=== PATIENT | female | born 1945 | race Caucasian/White ===

== ENCOUNTER 2016-05-19 05:05 | Inpatient (IN) | payer MEDICARE, SELFPAY ==
[2016-05-19 05:05] VITALS: BMI 21.2
[2016-05-19] MEDS ORDERED: NS 1,000 ML IV ONE ×3 (05:20→22:02)
[2016-05-19] MEDS ORDERED: PROMETHAZINE 25 MG/ML VIAL IV ONE ×2 (05:20→06:18)
--- NOTE | 2016-05-19 05:24 | EDPRACDOC ---
- General Information Chief Complaint: Nausea,Vomiting,Diarrhea Stated Complaint: WEAKNESS Time Seen by Provider: 05/19/16 05:13 Information Source: Patient Mode Of Arrival: Car Home Medications: Home Medications Amlodipine [Norvasc 10 mg Tablet] 10 mg PO DAILY 03/05/12 Aspirin [Chewable Aspirin] 81 mg PO DAILY 03/05/12 Atorvastatin [Lipitor 80 mg Tablet] 80 mg PO QHS 03/05/12 CloNIDine (Antihypertensive) [Catapres] 0.2 mg PO BID 03/05/12 Metoprolol Tartrate [Lopressor] 50 mg PO BID 03/05/12 Nitroglycerin 0.4 mg SL Q5MX3 PRN 03/05/12 Omeprazole [Prilosec] 40 mg PO DAILY 03/05/12 Sodium Bicarbonate 650 mg PO BID 03/05/12 Vitamin B Complex 1 cap PO DAILY 03/05/12 Acetaminophen [Tylenol] 650 mg PO Q4H PRN 05/19/16 Calcium Carbonate [Calcium] 600 mg PO BID 05/19/16 Ixazomib Citrate [Ninlaro] 4 mg PO DIR 05/19/16 Levothyroxine [Synthroid, Levoxyl] 50 mcg PO DAILY 05/19/16 Magnesium Oxide/Mag Aa Chelate [Magnesium 300 mg Capsule] 600 mg PO BID [place]-3 Fatty Acids/Fish Oil [Fish Oil 1,000 mg Capsule] 1 cap PO BID 05/19/16 Ondansetron [Zofran Odt] 4 mg PO Q6H PRN 05/19/16 Paricalcitol [Zemplar] 1 mcg PO DAILY 05/19/16 Allergies/Adverse Reactions: Allergies Allergy/AdvReac Type Severity Reaction Status Date / Time pain pills Allergy See Uncoded 05/19/16 09:06 Comments - History of Present Illness Onset: Saturday HPI: PATIENT HAS A HX OF MULTIPLE MYELOMA AND IS FOLLOWED BY DR. BUCK. SHE HAS DEVELOPED ANEMIA AND HYPERCALCEMIA. THIS HAS RECENTLY BECOME WORSE AND SO DR. BUCK STARTED HER ON IXAZOMIB. PATIENT STATES 1 ST DOSE LAST WEEK. - MADE HER SICK THEN. SECOND DOSE THIS WEEK. SHE NOTES NAUSEA AND VOMITING AND FATIGUE. Symptoms Occured: Reports: Spontaneous Duration: Reports: Since Onset Emesis: Reports: Food Particles Pain Severity: None Associated Signs & Symptoms: Reports: Nausea, Vomiting Oral Intake: Normal Urinary Output: Normal ED Past Medical History - History Reviewed Yes Nurses notes reviewed and agree except as marked Travel Outside of [place] in the Last 3 Months?: No - Patient Medical History Cardiac History: Reports: Hypertension, Heart Attack (2011). Denies: Cardiac Catheterization GI/ History: Reports: Renal Failure (CHRONIC KIDNEY DISEASE) Musculoskeletal History: Reports: Arthritis (FINGERS) Psychological History: Denies: Depression Systemic History: Reports: Cancer (multiple myeloma), Anemia, Hypothyroidism Surgical History: Denies: Angioplasty, Cardiac Catheterization Date of Last Chemotherapy Date: 03/05/12 - Family Medical History Denies: Hypertension, Diabetes, Cancer, Stroke, Cardiac Disorders - Social Medical History Smoking Status: Never smoker ETOH: None Substance Abuse: None Lives With: Family Lives In: Home EDM Review of Systems - Review of Systems ROS Negative Except as Marked: Yes All systems reviewed and were negative except as marked Constitutional: No Symptoms Reported. negative: Fever, Chills, Weakness, Fatigue, Loss of Appetite Eyes: No Symptoms Reported. negative: Redness, Blurred Vision, Double Vision, Discharge, Pain, Light Sensitive, Photophobia Ears: No Symptoms Reported. negative: Pain, Hearing Loss, Drainage, Ear Pulling Throat: No Symptoms Reported. negative: Pain, Swelling Nose: No Symptoms Reported. negative: Congestion, Bleeding, Discharge, Injection, Swelling, Deformity, Ecchymosis, Tender, Abrasion, Laceration Mouth: No Symptoms Reported. negative: Pain, Drooling Respiratory: No Symptoms Reported. negative: Cough, Brassy Cough, Barky Cough, Shortness of Breath, Wheezing, Hemoptysis Cardiovascular: No Symptoms Reported. negative: Chest Pain, Palpitations, Syncope, Edema, Orthopnea, PND, Skin Mottling, Cyanosis Gastrointestinal: Nausea, Vomiting. negative: Constipation, Diarrhea, Formula Intolerance, Melena, Pain Genitourinary: No Symptoms Reported. negative: Dysuria, Hematuria, Frequency, Discharge, Bleeding, Testicular Pain, Neurological: No Symptoms Reported. negative: Headache, Dizziness, Seizure, Numbness, Weakness, Speech Difficulty, Gait Difficulty Musculoskeletal: No Symptoms Reported. negative: Neck, Chestwall, Ribs, Back, Shoulder, Arm, Elbow, Forearm, Wrist, Hand, Pelvis, Hip, Femur, Knee, Leg, Ankle , Foot Integumentary: No Symptoms Reported. negative: Itching, Rash, Bruising, Wound Allergic/Immunologic: No Symptoms Reported. negative: Hives, Itching Hematologic: No Symptoms Reported. negative: Lymphadenopathy, Easy Bruising, Easy Bleeding Endocrine: No Symptoms Reported. negative: Weight Gain, Weight Loss Psychiatric: No Symptoms Reported. negative: Anxiety, Depression, Hallucinations, Insomnia, Suicidal - Physical Exam Constitutional: Alert (Awake), Cachectic Oriented to: Time, Person, Place Last recorded Vital Signs: Last Vital Signs Temp 97.7 F 05/19/16 05:15 Pulse 75 05/19/16 05:15 Resp 20 05/19/16 05:15 BP 124/59 L 05/19/16 05:15 Pulse Ox 99 05/19/16 05:15 Oxygen Pulse Oxygen Saturation 99 O2 Device Room Air Oxygen Flow Rate Fraction of Inspired Oxygen ( FIO2) - HEENT Head: Normal ( normocephalic) Eye Exam: Normal (PERRL, EOMI, Sclera white) Oropharynx: Normal (Pharynx:Moist without exudate,Gums-no swelling) Tympanic Membrane: Normal ENT EAC: Normal TMJ: Normal Nose: No Symptoms Reported (septum midline) Neck: Normal (FROM, trachea at midline) - Respiratory/Cardiovascular Respiratory: Normal - CTA (BBS clear to auscultation without adventitious sounds ) Cardiovascular: Normal (RRR without murmur, gallop or rub) - GI Auscultation: Normal (NABS) Palpation: Normal (Soft,No rebound or guarding, non distended) Tenderness: Non tender Richard's Sign: Negative - Musculoskeletal Back: Normal (Non-Tender) Extremities: Normal (Normal tone, Pulses 2+ No cyanosis or edema, FROM) - Integumentary Skin: Normal, Warm, Dry Lymphatics: Normal (no adenopathy) - Neurologic Memory Impaired: Normal Motor Function: Normal (Normal tone, Pulses 2+ No cyanosis or edema, FROM) Cranial Nerve: Normal (CN II-X11 intact sensation, strength 5/5) Cerebellar: Normal Mood Description: Normal Perception: Normal ED Procedures - Central Line Indication: Hypotension Line Procedure: Chlorahexadine Equipment used during procedure: Hat and Mask, Sterile Gown, Sterile Gloves Line Lumen: triple Central Line Postion: femoral (L) Anesthesia: local Line Position approached and secured by standard fashion: sutured, good blood return Complications: none - Intubation Indication: Respiratory Insufficiency, Altered Mental Status Intubation Date: 05/20/16 Time of Intubation: 06:10 Pre-oxygenation completed: Yes Number of Attempts: 1 Storcz Used: Yes Intubation Method: Oral Endotracheal Utilized: Mac3 Blade Tube Size (cm): 7.5 Position at Lip: 17 ETCO2 Detector Positive: Yes Breath Sounds after Intubation: equal Intubation Complications: no complications Post Intubation Procedure CXR ordered?: Yes - Re-evaluation Re-evaluation 1 Re-evaluation Time: 06:09 (CALLED TO BEDSIDE TODAY AFTER PATIENT COLLAPSED. REQUIRED EMERGENT INTUBATION AND CENTRAL LINE PLACEMENT DURING CPR) - Results 05/20/16 01:40 05/20/16 01:40 - EKG EKG #1 EKG Time: 06:16 -: Yes EKG interpreted by me Rate: bpm: 71 [place]: Normal Rhythm: NSR Block: None Hypertrophy: None ST: Normal ED Critical Care Note - Critical Care Note Total Time (mins): 90 - Departure Yes I personally saw and evaluated the patient. Disposition: Admit IP To This Hospital Condition: Fair Final Diagnosis: Nausea and vomiting, Acute on chronic renal failure, Hyponatremia Education/Counseling Given To: Patient Education/Counseling Given Regarding: Diagnosis, Treatment, Prognosis Decision to Admit Time: 06:06 Decision to admit date: 05/20/16 Decision to admit: from ED - Physician Consulted Hospitalist Time Called: 06:06 Provider Called: Adeel Lee Time Bottling Attendant Returned Call: 06:06
[2016-05-19 05:38] LABS: AUTOMATED BASOPHIL 0.4 % (0-2); AUTOMATED LYMPH 12.8 % (17-44); AUTOMATED MONOCYTE 5.9 % (3-10); AUTOMATED NEUTROPHIL 80.9 % (45-76); MPV 11.4 fL (7.4-10.4)
[2016-05-19 05:51] LABS: BLOOD UREA NITROGEN 42 MG/DL (7-17); CALCIUM 10.9 MG/DL (8.4-10.2); CALCULATED OSMOLALITY 261 MOs/Kg (270-290); CHLORIDE 93 mEq/L (98-107); GLUCOSE 119 mg/dL (70-99); SODIUM LEVEL 129 mEq/L (137-146); TOTAL PROTEIN 6.8 G/DL (6.3-8.2)
[2016-05-19] MEDS ORDERED: PANTOPRAZOLE 40 MG TAB PO SCH (06:00)
[2016-05-19] MEDS ORDERED: ALPRAZOLAM 0.5 MG TAB PO PRN (07:24)
[2016-05-19] MEDS ORDERED: Albuterol/Ipratropium Neb 3 ML NEB NEB PRN (07:27)
[2016-05-19] MEDS: ONDANSETRON HCL 4 MG/2 ML VIAL IV PRN ×3 (08:26→20:44)
[2016-05-19] MEDS ORDERED: ASPIRIN (CHEWABLE) 81 MG TAB PO SCH (09:00)
[2016-05-19] MEDS ORDERED: LEVOTHYROXINE 75 MCG (0.075 MG) TAB PO SCH (09:00)
[2016-05-19] MEDS ORDERED: PARICALCITOL 1 MCG CAP PO SCH (09:00)
[2016-05-19] MEDS ORDERED: AMLODIPINE 10 MG TAB PO SCH (09:00)
[2016-05-19] MEDS ORDERED: METOPROLOL TARTRATE 50 MG TAB PO SCH (09:00)
[2016-05-19] MEDS: SODIUM BICARBONATE 650 MG (10 GR) TAB PO SCH ×2 (09:28→22:14)
[2016-05-19] MEDS: NS 1,000 ML IV SCH ×2 (09:36→16:05)
[2016-05-19] MEDS: CALCIUM CARBONATE 500 MG TAB PO SCH ×2 (09:36→15:44)
[2016-05-19] MEDS: MAGNESIUM OXIDE 400 MG TAB PO SCH ×2 (09:36→15:43)
[2016-05-19] MEDS ORDERED: Vaccine Screening Complete SCH (10:00)
[2016-05-19] MEDS ORDERED: PROMETHAZINE 25 MG/ML VIAL IV PRN ×2 (10:41→18:50)
[2016-05-19] MEDS ORDERED: LORAZEPAM 2 MG/ML VIAL IV PRN ×2 (10:41→18:52)
--- NOTE | 2016-05-19 10:47 | HISTPHYS ---
- Chief Complaint Nausea vomiting - History of Present Illness This is a pleasant 70-year-old female who unfortunately is under treatment by Dr. Gruber for multiple myeloma, and is being admitted to the hospital due to intractable nausea and vomiting with associated dehydration and acute kidney injury. The patient tells me that she started on a new medication last week, which has resulted in severe nausea and vomiting. She takes the medication each Saturday, taking her last dose 4 days ago and the same symptoms including nausea, vomiting and lack of appetite have recurred just as they did when she took her dose last Saturday. She has a couple of friends with her this morning in the hospital who of spent the night with her, and says that she she was up all night nauseous and vomiting constantly. She has been having bowel movements which are quite normal, the last 1 was about 48 hours ago. She denies any chest pain, fevers, shortness of breath, chills, diarrhea or constipation. She has a little bit of abdominal pain, but she feels like this is due to her severe vomiting. No rashes on her skin or sick contacts. No antibiotics recently. - Medical History Cardiac History: Reports: Hypertension, Heart Attack (2010). Denies: Cardiac Catheterization GI/ History: Reports: Renal Failure (CHRONIC KIDNEY DISEASE) Musculoskeletal History: Reports: Arthritis (FINGERS) Systemic History: Reports: Cancer (multiple myeloma), Anemia, Hypothyroidism Psychological History: Denies: Depression - Surgical History Denies: Angioplasty, Cardiac Catheterization - Medictions/Allergies Allergies pain pills Allergy (Uncoded 05/19/16 09:06) See Comments makes me see things Home Medications Amlodipine [Norvasc 10 mg Tablet] 10 mg PO DAILY 03/05/12 Aspirin [Chewable Aspirin] 81 mg PO DAILY 03/05/12 Atorvastatin [Lipitor 80 mg Tablet] 80 mg PO QHS 03/05/12 CloNIDine (Antihypertensive) [Catapres] 0.2 mg PO BID 03/05/12 Metoprolol Tartrate [Lopressor] 50 mg PO BID 03/05/12 Nitroglycerin 0.4 mg SL Q5MX3 PRN 03/05/12 Omeprazole [Prilosec] 40 mg PO DAILY 03/05/12 Sodium Bicarbonate 650 mg PO BID 03/05/12 Vitamin B Complex 1 cap PO DAILY 03/05/12 Acetaminophen [Tylenol] 650 mg PO Q4H PRN 05/19/16 Calcium Carbonate [Calcium] 600 mg PO BID 05/19/16 Ixazomib Citrate [Ninlaro] 4 mg PO DIR 05/19/16 Levothyroxine [Synthroid, Levoxyl] 50 mcg PO DAILY 05/19/16 Magnesium Oxide/Mag Aa Chelate [Magnesium 300 mg Capsule] 600 mg PO BID [place]-3 Fatty Acids/Fish Oil [Fish Oil 1,000 mg Capsule] 1 cap PO BID 05/19/16 Ondansetron [Zofran Odt] 4 mg PO Q6H PRN 05/19/16 Paricalcitol [Zemplar] 1 mcg PO DAILY 05/19/16 - Family History Denies: Hypertension, Diabetes, Cancer, Stroke, Cardiac Disorders - Social History Smoking Status: Never smoker - Review of Systems Yes All systems reviewed and were negative except as marked (And as mentioned in the history of present illness above.) - Physical Exam Vital Signs: Initial Vitals Temperature 97.7 F 05/19/16 05:15 Pulse Rate 75 05/19/16 05:15 Respiratory Rate 20 05/19/16 05:15 Blood Pressure 124/59 L 05/19/16 05:15 Pulse Oxygen Saturation 99 05/19/16 05:15 Constitutional: Distress Oriented to: Time, Person, Place Exam: Tired appearing woman appearing her stated age resting in a hospital bed on the PCU. - HEENT Head: Normal (normocephalic,atraumatic, trachea midline) Eye: Normal (EOMI, Sclera white) Oropharynx: Normal (moist), Membranes Dry Nose: No Symptoms Reported (without discharge or bleeding) Respiratory: Normal - CTA (Clear to auscultation bilaterally, no wheezing,rales or rhonchi. No use of accessory muscles) Cardiovascular: Normal (RRR, no murmurs, rubs or gallops) - GI Palpation: Normal (soft, non distended and nontender) - Musculoskeletal Extremities: Normal (normal tone, no cyanosis or edema) - Integumentary Skin: Normal (no rashes or lesions) - Neurologic Cranial Nerve: Normal (CN II-XII intact) Mood Description: Normal (Fully oriented and appropiate affect) - Focused CV Perfusion Exam Vital Signs: Last Vital Signs Temp 98.1 F 05/19/16 09:18 Pulse 89 05/19/16 10:40 Resp 18 05/19/16 09:18 BP 131/71 05/19/16 09:18 Pulse Ox 97 05/19/16 09:18 - Lab Results Laboratory Tests 05/19/16 05/19/16 05:27 05:27 WBC 10.0 Hgb 12.8 Hct 38.0 Plt Count 100 L Sodium 129 L Potassium 4.0 Carbon Dioxide 20 L BUN 42 H Creatinine 3.60 H Calcium 10.9 H AST 41 H ALT 31 Alkaline Phosphatase 110 - Assessment (1) Hypercalcemia E83.52 - HYPERCALCEMIA Acute Hypercalcemia of malignancy, related to her multiple myeloma. Calcium levels are actually relatively stable, and better than they have been in the intervening months. (2) Multiple myeloma C90.00 - MULTIPLE MYELOMA NOT HAVING ACHIEVED REMISSION Acute Currently under the care of Dr. Gruber, her presentation is most likely related to medication effect from her current chemotherapy. (3) Acute on chronic renal failure N17.9 - ACUTE KIDNEY FAILURE, UNSPECIFIED; N18.9 - CHRONIC KIDNEY DISEASE, UNSPECIFIED Acute Baseline creatinine about 2.9. Will hydrate gently, recheck renal function in the morning. (4) Hyponatremia E87.1 - HYPO-OSMOLALITY AND HYPONATREMIA Acute Mild, hypovolemic. rehydrating with normal saline will follow daily. (5) Nausea and vomiting R11.2 - NAUSEA WITH VOMITING, UNSPECIFIED Acute Due to medication effect. Will treat with alternating IV Zofran and IV Phenergan, as well as small doses of IV Ativan.
[2016-05-19] MEDS ORDERED: PANTOPRAZOLE 40 MG VIAL IV SCH (11:00)
[2016-05-19] MEDS ORDERED: VIT B-C COMPLEX (NEPHROVITE) TAB PO SCH (12:00)
[2016-05-19] MEDS ORDERED: RTU IV ONE (12:04)
[2016-05-19] MEDS ORDERED: SODIUM BICARBONATE 50 MEQ/50 ML (8.4%) PFS IV ONE (12:04)
[2016-05-19] MEDS ORDERED: D5W 100 ML IV ONE (12:04)
[2016-05-19] MEDS ORDERED: EPINEPHrine 1 MG/10 ML (1:10,000) SYR IV ONE ×2 (12:04)
[2016-05-19] MEDS ORDERED: DOPAMINE IV ONE (12:04)
[2016-05-19] MEDS ORDERED: ENOXAPARIN 60 MG/0.6 ML PFS SQ SCH (18:00)
[2016-05-19] MEDS ORDERED: ENOXAPARIN 40 MG/0.4 ML PFS SQ SCH (18:00)
[2016-05-19] MEDS ORDERED: Enoxaparin Treatment Dose per Pharmacy SQ SCH (18:00)
[2016-05-19] MEDS ORDERED: ASPIRIN 300 MG SUPP PR ONE (18:00)
[2016-05-19] MEDS: MORPHINE 2 MG/ML INJECTION IV PRN ×2 (19:11→22:14)
[2016-05-19] MEDS ORDERED: ATORVASTATIN 80 MG TAB PO SCH (21:00)
[2016-05-19 22:44] LABS: PARTIAL THROMB. TIME 26.8 SEC (22-35); PT-INR 1.1
[2016-05-20] MEDS ORDERED: PANTOPRAZOLE 40 MG VIAL IV SCH
[2016-05-20 01:56] LABS: MPV 11.4 fL (7.4-10.4)
[2016-05-20 02:19] LABS: BLOOD UREA NITROGEN 38 MG/DL (7-17); CALC CORRECTED 9.9 MG/DL (8.4-10.2); CALCIUM 8.7 MG/DL (8.4-10.2); CALCULATED OSMOLALITY 266 MOs/Kg (270-290); CHLORIDE 106 mEq/L (98-107); GLUCOSE 142 mg/dL (70-99); SODIUM LEVEL 132 mEq/L (137-146); TOTAL PROTEIN 5.4 G/DL (6.3-8.2)
[2016-05-20] MEDS: ONDANSETRON HCL 4 MG/2 ML VIAL IV PRN (03:21)
[2016-05-20] MEDS ORDERED: NS 1,000 ML IV ONE ×3 (03:30→05:34)
--- NOTE | 2016-05-20 03:35 | GENMEDPROG ---
Chief Complaint: CRITICAL CARE NOTE 05/20/16329 S: NURSE CALLED. PATIENT HAS INCREASING TROPONIN LEVEL. HAS HYPOTENSION AGAIN ( HYPOTENSIVE EARLIER THIS EVENING). CLAMMY. DOES NOT LOOK WELL. Subjective Note: CRITICAL CARE NOTE 05/20/16329 S: NURSE CALLED. PATIENT HAS INCREASING TROPONIN LEVEL. HAS HYPOTENSION AGAIN ( HYPOTENSIVE EARLIER THIS EVENING). CLAMMY. DOES NOT LOOK WELL. Patient reports she feels weak. No chest pain or shortness of breath. Does have continued vomiting. Nausea. Mild abdominal pain epigastric 5/10 dull ache, worse with vomiting. No diarrhea, constipation, or bloody stool. Patient states she feels hot. Has had left back/flank pain, unchanged. ROS: GENERAL: No Fever, or diaphoresis. Positive for fatigue/malaise. States she feels hot. HEENT: No ear pain or discharge. No nasal discharge or bleeding. No throat pain or swelling. No eye pain or eye redness. RESPIRATORY: No cough, wheezing, or shortness of breath. CARDIOVASCULAR: No chest pain. Occasional palpitations. GI: Abdominal pain, nausea, vomiting. No diarrhea, constipation, or bloody stool. Has had left back/flank pain, unchanged. NEUROLOGICAL: No headache or focal weakness. INTEGUMENT: no rashes, itching, or lesions. LYMPHATIC SYSTEM: no lymph node swelling or pain. MUSCULOSKELETAL: no new pain or joint swelling. GENITOURINARY: No dysuria or hematuria. ENDOCRINE: No polyuria or polydipsia. HEME: No acute bleeding, or easy bruising. Notes Reviewed: Yes: Events from last night noted and discussed with Clinical Staff Current Medication List: Reviewed - Physical Examination Vital Signs and I&O: Last Vital Signs Temp 97.5 F 05/19/16 23:56 Pulse 106 05/20/16 03:27 Resp 16 05/19/16 23:56 BP 84/48 L 05/20/16 03:27 Pulse Ox 93 05/19/16 23:56 Oxygen Pulse Oxygen Saturation 93 O2 Device Nasal Cannula Oxygen Flow Rate 3.5 Fraction of Inspired Oxygen ( FIO2) Intake & Output 05/17/16 05/18/16 05/19/16 05/20/16 05:59 05:59 05:59 05:59 Intake Total 2963 Output Total 500 Balance 2463 Respiratory: Normal - CTA (Clear to auscultation bilaterally, no wheezing,rales or rhonchi. No use of accessory muscles) GENERAL: Ill-appearing, well nourished, in acute distress. HEENT: Normocephalic, atraumatic; pupils equal and round. Nares patent, without discharge or bleeding. No oropharyngeal lesions or erythema. Mucous membranes are dry. NECK: is supple, no masses, trachea midline. RESPIRATORY: Clear to auscultation bilaterally. Chest wall movements are symmetric. No use of accessory muscles to breathe. No wheezing, rales, rhonchi. CARDIOVASCULAR: Normal S1, S2. Murmur 2/6 systolic. No rubs, or gallops. PMI non -displaced. Carotids: no carotid bruits. Mild tachycardia. DP pulses 2+ bilaterally. GI: soft, non-distended, normal active bowel sounds. No hepatosplenomegaly. Mild epigastric tenderness. INTEGUMENT: PALE. Clean, mildly diaphoretic, and intact. No rashes. No lesions. MUSCULOSKELETAL: Moving all extremities. No cyanosis. No clubbing. Edema: none bilaterally. NEUROLOGICAL: Cranial nerves 2-12 grossly intact. Motor 4-/5 throughout. Reflexes: 2+ bilaterally. Babinski: toes downgoing bilaterally. Intact Finger to nose. Sensory grossly intact to light touch. Intact rapid alternating movements bilaterally. No pronator drift. PSYCHIATRIC: Fully oriented. Normal and appropriate affect. LYMPHATIC: No cervical lymphadenopathy. No supraclavicular lymphadenopathy. Lab/DI/Studies Reviewed: Laboratory Tests 05/19/16 05/19/16 05/19/16 05:27 05:27 09:50 WBC 10.0 RBC 4.17 L Hgb 12.8 Hct 38.0 MCV 91 MCH 30.6 MCHC 33.5 RDW 14.6 H Plt Count 100 L MPV 11.4 H Neut % (Auto) 80.9 H Lymph % (Auto) 12.8 L Moody % (Auto) 5.9 Eos % (Auto) 0.0 Baso % (Auto) 0.4 Absolute Neuts (auto) 8.00 Absolute Lymphs (auto) 1.20 PT 11.3 H INR 1.1 APTT 26.8 Fibrinogen 392 Sodium 129 L Potassium 4.0 Chloride 93 L Carbon Dioxide 20 L Anion Gap 20 H BUN 42 H Creatinine 3.60 H Estimated GFR (MDRD) 13 L Glucose 119 H Calculated Osmolality 261 L Calcium 10.9 H Corrected Calcium Magnesium Total Bilirubin 0.5 AST 41 H ALT 31 Alkaline Phosphatase 110 Troponin I Total Protein 6.8 Albumin 4.0 05/19/16 05/19/16 05/19/16 09:50 17:00 20:15 WBC RBC Hgb Hct MCV MCH MCHC RDW Plt Count 86 L MPV Neut % (Auto) Lymph % (Auto) Moody % (Auto) Eos % (Auto) Baso % (Auto) Absolute Neuts (auto) Absolute Lymphs (auto) PT INR APTT Fibrinogen Sodium Potassium Chloride Carbon Dioxide Anion Gap BUN Creatinine Estimated GFR (MDRD) Glucose Calculated Osmolality Calcium Corrected Calcium Magnesium Total Bilirubin AST ALT Alkaline Phosphatase Troponin I 0.67 H* 1.99 H* D Total Protein Albumin 05/20/16 05/20/16 05/20/16 01:40 01:40 01:40 WBC 12.2 H RBC 3.55 L Hgb 11.0 L D Hct 33.4 L MCV 94 MCH 30.8 MCHC 32.8 L RDW 14.5 Plt Count 77 L MPV 11.4 H Neut % (Auto) Lymph % (Auto) Moody % (Auto) Eos % (Auto) Baso % (Auto) Absolute Neuts (auto) Absolute Lymphs (auto) PT INR APTT Fibrinogen Sodium 132 L Potassium 4.0 Chloride 106 Carbon Dioxide 7 L Anion Gap 23 H BUN 38 H Creatinine 3.30 H Estimated GFR (MDRD) 14 L Glucose 142 H Calculated Osmolality 266 L Calcium 8.7 Corrected Calcium 9.9 Magnesium Total Bilirubin 0.5 AST 119 H ALT 58 H Alkaline Phosphatase 81 Troponin I 6.13 H* D Total Protein 5.4 L Albumin 2.8 L 05/20/16 01:40 WBC RBC Hgb Hct MCV MCH MCHC RDW Plt Count MPV Neut % (Auto) Lymph % (Auto) Moody % (Auto) Eos % (Auto) Baso % (Auto) Absolute Neuts (auto) Absolute Lymphs (auto) PT INR APTT Fibrinogen Sodium Potassium Chloride Carbon Dioxide Anion Gap BUN Creatinine Estimated GFR (MDRD) Glucose Calculated Osmolality Calcium Corrected Calcium Magnesium 1.40 L Total Bilirubin AST ALT Alkaline Phosphatase Troponin I Total Protein Albumin EKG #1: 71 bpm. Normal sinus rhythm. Low voltage QRS. Nonspecific T wave abnormality. Flat T wave in 3, aVF, and V6. Minimal ST depression in 2. Reviewed EKG personally. EKG #2: 105 bpm. Sinus tachycardia. Low voltage QRS. Cannot rule out anterior infarct, age undetermined. Flat T wave in leads 3, aVF, and V6. ST depression in V2, V4. Reviewed EKG personally. - Assessment (1) Hypotension Acute I95.9 - HYPOTENSION, UNSPECIFIED Comment/Plan: SBP in high 80s. Required several IVF boluses overnight. Plan: Transfer to ICU. Continue IVF boluses. If no improvement add pressors. (2) Acute coronary syndrome Acute I24.9 - ACUTE ISCHEMIC HEART DISEASE, UNSPECIFIED Comment/Plan: Possible diagnosis, vs increase due to renal failure and acute illness. No chest pain. Troponin continues to increase. Plan: Lovenox q 12 hours. Cannot receive beta yvette or CHANNING at this time due to renal failure and hypotension. Telemetry. (3) Acute on chronic renal failure Acute N17.9 - ACUTE KIDNEY FAILURE, UNSPECIFIED; N18.9 - CHRONIC KIDNEY DISEASE, UNSPECIFIED Comment/Plan: HISTORY: Baseline creatinine 2.9. Will hydrate gently, recheck renal function in the morning. UPDATE: Cr 3.6 decreased slightly to 3.3. Continue rehydration. Continue home medications. Avoid nephrotoxins. (4) Magnesium deficiency Acute E61.2 - MAGNESIUM DEFICIENCY Comment/Plan: Noted. Plan: Replace with IV magnesium Caution due to renal failure. (5) Nausea and vomiting Acute R11.2 - NAUSEA WITH VOMITING, UNSPECIFIED Comment/Plan: Due to medication effect. Will treat with alternating IV Zofran and IV Phenergan, as well as small doses of IV Ativan. UPDATE: Severe. Has had several episodes of vomiting overnight. Increased Phenergan dose. Continue with zofran, ativan. (6) Multiple myeloma Acute C90.00 - MULTIPLE MYELOMA NOT HAVING ACHIEVED REMISSION Comment/Plan: Currently under the care of Dr. Gruber, her presentation is most likely related to medication effect from her current chemotherapy. - Plan GI Prophylaxis with Pantoprazole 40 mg q 12 hours. Ordered labs. In summary, this patient is acutely and critically ill. The patient requires treatment of vital organ failure and measures to prevent further life- threatening deterioration of condition. I have spent 60 min in the critical care of this patient. Case Care Discussed with: Patient, Nursing Staff Total Time: 60 min. Critical Care: Yes Code: 291
[2016-05-20 03:57] VITALS: TEMP 96.3
[2016-05-20] MEDS ORDERED: Magnesium Sulfate 2 gm/D5W 2 GM/50 ML RTU IV ONE (04:00)
[2016-05-20] MEDS ORDERED: NS 500 ML IV ONE (04:25)
[2016-05-20] MEDS ORDERED: MIDAZOLAM 5 MG/5 ML VIAL ONE (05:13)
[2016-05-20] MEDS ORDERED: SUCCINYLCHOLINE 20 MG/ML INJ 10 ML VIAL IV ONE (05:14)
[2016-05-20] MEDS ORDERED: ETOMIDATE 20 MG/10 ML VIAL IV ONE (05:15)
[2016-05-20] MEDS ORDERED: LIDOCAINE 100 MG PFS IV ONE (05:15)
[2016-05-20] MEDS ORDERED: ATROPINE 1 MG/10 ML PFS IV ONE (05:15)
[2016-05-20] MEDS ORDERED: Norepinephrine in D5W infusion 8,000 MCG/250 ML BAG IV ONE (05:35)
[2016-05-20] MEDS ORDERED: Norepinephrine in D5W infusion 8,000 MCG/250 ML BAG IV SCH (05:35)
[2016-05-20] MEDS ORDERED: DOPAMINE IV SCH (05:42)
[2016-05-20] MEDS ORDERED: RTU IV SCH (05:42)
[2016-05-20] MEDS ORDERED: CHAPSTICK LIP BALM TOP PRN (05:46)
[2016-05-20] MEDS ORDERED: LORAZEPAM 2 MG/ML VIAL IV PRN (05:46)
[2016-05-20] MEDS ORDERED: CHLORHEXIDINE 0.12% ORAL SOLN 15 ML PO SCH (06:00)
[2016-05-20] MEDS ORDERED: FENTANYL 2,500 MCG/250 ML BAG IV SCH (06:00)
--- NOTE | 2016-05-20 06:18 | DIRPT ---
CLINICAL DATA: Intubation. Check tube placement. Suspected STEMI. EXAM: PORTABLE CHEST 1 VIEW COMPARISON: 01/25/2016 FINDINGS: Endotracheal tube with tip just below the cords and cuff likely supraglottic. The orogastric tube tip is in the stomach. Stable heart size and aortic contours when allowing for rotation. There is streaky perihilar opacity suggesting atelectasis and possible aspiration. There is interlobular septal thickening bilaterally with [place] lines. No visible effusion or air leak. These results were called by telephone at the time of interpretation on 05/20/2016 at 6:[address] EMILIA PAYTON MD, who verbally acknowledged these results. IMPRESSION: 1. Malpositioned endotracheal tube with cuff above the glottis. 2. Orogastric tube in good position. 3. Extensive lung opacity, favor combination of perihilar atelectasis/ aspiration and pulmonary edema. Electronically Signed By: Liborio Taveras M.D. On: 05/20/2016 06:15
[2016-05-20 06:39] VITALS: BP 147/64; PULSE 90
[2016-05-20] MEDS ORDERED: MORPHINE 2 MG/ML INJECTION ONE (06:51)
[2016-05-20 06:54] LABS: MPV 11.6 fL (7.4-10.4)
[2016-05-20 07:07] LABS: CALC CORRECTED 9.4 MG/DL (8.4-10.2); CALCIUM 6.7 MG/DL (8.4-10.2); CREATININE 2.9 MG/DL (0.52-1.04); TOTAL PROTEIN 2.6 G/DL (6.3-8.2)
[2016-05-20 07:21] LABS: PT-INR 1.6
[2016-05-20 07:35] LABS: SEG NEUTROPHIL 70 % (45-76)
--- NOTE | 2016-05-20 13:29 | CAPUEKG ---
[place], [place] Test Date: 2016-05-19 Pat Name: YANCY GARCIA Department: Room: 446 Gender: Female Personnel Recruiter: AMIRA YING: Requested By: Order Number: Reading MD: Anthony Kelley Measurements Intervals [place] Rate: 105 P: 49 HI: 158 QRS: -33 QRSD: 90 T: 62 QT: 374 QTc: 494 Interpretive Statements Sinus tachycardia Left axis deviation Low voltage QRS Non-specific ST-T changes anteriorly Since earlier tracing, rate has increased and S-T changes more prominent. Abnormal ECG Electronically Signed On 05-20-16 13:29:02 EST by Anthony Kelley <[email or web address] [id number]
--- NOTE | 2016-05-20 19:18 | GENMEDPROG ---
Chief Complaint: CRITICAL CARE AND CODE BLUE NOTE 05/20/16449 S: NURSE NOTED PATIENT'S OXYGEN LEVELS WORSENING. PATIENT STILL HYPOTENSIVE. UPDATE: PATIENT'S HEART RATE WAS MILDLY TACHYCARDIC, THEN WAS BRADYCARDIC. UPDATE: PATIENT'S HEART RATE DECREASED, BECAME APNEIC, CODE BLUE CALLED. Subjective Note: CRITICAL CARE AND CODE BLUE NOTE 05/20/16449 S: NURSE NOTED PATIENT'S OXYGEN LEVELS WORSENING. PATIENT STILL HYPOTENSIVE. UPDATE: PATIENT'S HEART RATE WAS MILDLY TACHYCARDIC, THEN WAS BRADYCARDIC. UPDATE: PATIENT'S HEART RATE DECREASED BRIEFLY, BECAME APNEIC, CODE BLUE CALLED , HEART RATE INCREASED. Notes Reviewed: Yes: Events from last night noted and discussed with Clinical Staff Current Medication List: Reviewed DVT Prophylaxis: Yes - Physical Examination Vital Signs and I&O: Last Vital Signs Temp 96.3 F L 05/20/16 03:27 Pulse 90 05/20/16 06:36 Resp 19 05/20/16 06:36 BP 147/64 05/20/16 06:36 Pulse Ox 92 05/20/16 06:36 Oxygen Pulse Oxygen Saturation 92 O2 Device Nasal Cannula Oxygen Flow Rate 5 Fraction of Inspired Oxygen ( 100 FIO2) Intake & Output 05/18/16 05/19/16 05/20/16 05/21/16 05:59 05:59 05:59 05:59 Intake Total 2963 Output Total 500 Balance 2463 Patient's weight 52.617 kg Vital Signs - 24 hr 05/19/16 05/19/16 05/19/16 20:00 21:59 22:05 Temperature 98.2 F Pulse Rate 103 114 112 Respiratory 20 Rate Blood Pressure 96/62 L 88/56 L Pulse Oxygen 92 Saturation 05/19/16 05/19/16 05/19/16 22:14 22:27 23:04 Temperature Pulse Rate 110 109 110 Respiratory Rate Blood Pressure 92/61 L 90/62 L 91/60 L Pulse Oxygen Saturation 05/19/16 05/20/16 05/20/16 23:56 00:00 02:07 Temperature 97.5 F Pulse Rate 108 111 109 Respiratory 16 Rate Blood Pressure 92/58 L Pulse Oxygen 93 Saturation 05/20/16 05/20/16 05/20/16 03:20 03:27 04:00 Temperature 96.3 F L Pulse Rate 112 106 106 Respiratory 16 Rate Blood Pressure 84/48 L 96/63 L Pulse Oxygen 92 90 L Saturation 05/20/16 05/20/16 04:30 06:36 Temperature Pulse Rate 106 90 Respiratory 19 Rate Blood Pressure 86/59 L 147/64 Pulse Oxygen 88 L 92 Saturation See code blue chart for further detail. Initial exam: GENERAL: Critically ill-appearing, well nourished, in acute distress. HEENT: Normocephalic, atraumatic; pupils equal and round. Nares patent, without discharge or bleeding. No oropharyngeal lesions or erythema. Mucous membranes are dry. NECK: is supple, no masses, trachea midline. RESPIRATORY: Clear to auscultation bilaterally. Chest wall movements are symmetric. No use of accessory muscles to breathe. Tachypnea. Decreased breath sounds in bases. No wheezing, rales, rhonchi. CARDIOVASCULAR: Normal S1, S2. No rubs, or gallops. PMI non-displaced. Carotids : no carotid bruits. Mild tachycardia. DP pulses 2+ bilaterally. GI: soft, non-distended, normal active bowel sounds. No hepatosplenomegaly. Mild epigastric tenderness. INTEGUMENT: Pale. Clean, dry, and intact. No rashes. No lesions. MUSCULOSKELETAL: No cyanosis. No clubbing. Edema: none bilaterally. NEUROLOGICAL: Cranial nerves 2-12 grossly intact, as best could be determined in this patient who is somnolent. No focal deficits appreciated. PSYCHIATRIC: Oriented. Somnolent. LYMPHATIC: No cervical lymphadenopathy. No supraclavicular lymphadenopathy. Follow up exam, code blue: GENERAL: Critically ill-appearing, well nourished, in acute distress. HEENT: Normocephalic, atraumatic; pupils equal and round. Nares patent, without discharge or bleeding. Mucous membranes are dry. After intubation and CPR, had blood in mouth and some in ET tube. NECK: is supple, no masses, trachea midline. RESPIRATORY: Clear to auscultation bilaterally. Decreased breath sounds. After intubation, breath sounds equal bilaterally. Patient without respirations, then had some spontaneous agonal breaths, then became apneic again. CARDIOVASCULAR: Periods of tachycardia and bradycardia. Patient lost pulses. Had PEA (pulseless electrical activity). GI: soft, non-distended. No hepatosplenomegaly. NG tube that was placed after first code blue episode drained dark red blood. INTEGUMENT: Pale. Clean, dry, and intact. No rashes. No lesions. MUSCULOSKELETAL: Developed cyanosis. No clubbing. Edema: none bilaterally. NEUROLOGICAL: Cranial nerves: unable to assess. No focal deficits appreciated. Patient had a few episodes of moving legs, jaw, head in between code blue efforts. PSYCHIATRIC: Not oriented. Obtunded. LYMPHATIC: No cervical lymphadenopathy. No supraclavicular lymphadenopathy. Lab/DI/Studies Reviewed: Laboratory Tests 05/19/16 05/19/16 05/19/16 05:27 05:27 09:50 WBC 10.0 RBC 4.17 L Hgb 12.8 Hct 38.0 MCV 91 MCH 30.6 MCHC 33.5 RDW 14.6 H Plt Count 100 L MPV 11.4 H Neut % (Auto) 80.9 H Lymph % (Auto) 12.8 L [place] % (Auto) 5.9 Eos % (Auto) 0.0 Baso % (Auto) 0.4 Absolute Neuts (auto) 8.00 Absolute Lymphs (auto) 1.20 Seg Neuts % (Manual) Band Neutrophils % Lymphocytes % (Manual) Absolute Neutrophils Absolute Lymphocytes Nucl RBC Rel Cnt (Man) Toxic Granulation Platelet Estimate RBC Morphology PT 11.3 H INR 1.1 APTT 26.8 Fibrinogen 392 Sodium 129 L Potassium 4.0 Chloride 93 L Carbon Dioxide 20 L Anion Gap 20 H BUN 42 H Creatinine 3.60 H Estimated GFR (MDRD) 13 L Glucose 119 H Calculated Osmolality 261 L Lactic Acid Calcium 10.9 H Corrected Calcium Magnesium Total Bilirubin 0.5 AST 41 H ALT 31 Alkaline Phosphatase 110 Troponin I Total Protein 6.8 Albumin 4.0 Cortisol 05/19/16 05/19/16 05/19/16 09:50 17:00 20:15 WBC RBC Hgb Hct MCV MCH MCHC RDW Plt Count 86 L MPV Neut % (Auto) Lymph % (Auto) [place] % (Auto) Eos % (Auto) Baso % (Auto) Absolute Neuts (auto) Absolute Lymphs (auto) Seg Neuts % (Manual) Band Neutrophils % Lymphocytes % (Manual) Absolute Neutrophils Absolute Lymphocytes Nucl RBC Rel Cnt (Man) Toxic Granulation Platelet Estimate RBC Morphology PT INR APTT Fibrinogen Sodium Potassium Chloride Carbon Dioxide Anion Gap BUN Creatinine Estimated GFR (MDRD) Glucose Calculated Osmolality Lactic Acid Calcium Corrected Calcium Magnesium Total Bilirubin AST ALT Alkaline Phosphatase Troponin I 0.67 H* 1.99 H* D Total Protein Albumin Cortisol 05/20/16 05/20/16 05/20/16 01:40 01:40 01:40 WBC 12.2 H RBC 3.55 L Hgb 11.0 L D Hct 33.4 L MCV 94 MCH 30.8 MCHC 32.8 L RDW 14.5 Plt Count 77 L MPV 11.4 H Neut % (Auto) Lymph % (Auto) [place] % (Auto) Eos % (Auto) Baso % (Auto) Absolute Neuts (auto) Absolute Lymphs (auto) Seg Neuts % (Manual) Band Neutrophils % Lymphocytes % (Manual) Absolute Neutrophils Absolute Lymphocytes Nucl RBC Rel Cnt (Man) Toxic Granulation Platelet Estimate RBC Morphology PT INR APTT Fibrinogen Sodium 132 L Potassium 4.0 Chloride 106 Carbon Dioxide 7 L Anion Gap 23 H BUN 38 H Creatinine 3.30 H Estimated GFR (MDRD) 14 L Glucose 142 H Calculated Osmolality 266 L Lactic Acid Calcium 8.7 Corrected Calcium 9.9 Magnesium Total Bilirubin 0.5 AST 119 H ALT 58 H Alkaline Phosphatase 81 Troponin I 6.13 H* D Total Protein 5.4 L Albumin 2.8 L Cortisol 05/20/16 05/20/16 05/20/16 01:40 01:40 06:34 WBC RBC Hgb Hct MCV MCH MCHC RDW Plt Count MPV Neut % (Auto) Lymph % (Auto) [place] % (Auto) Eos % (Auto) Baso % (Auto) Absolute Neuts (auto) Absolute Lymphs (auto) Seg Neuts % (Manual) Band Neutrophils % Lymphocytes % (Manual) Absolute Neutrophils Absolute Lymphocytes Nucl RBC Rel Cnt (Man) Toxic Granulation Platelet Estimate RBC Morphology PT INR APTT Fibrinogen Sodium Potassium Chloride Carbon Dioxide Anion Gap BUN Creatinine Estimated GFR (MDRD) Glucose Calculated Osmolality Lactic Acid Calcium Corrected Calcium Magnesium 1.40 L Total Bilirubin AST ALT Alkaline Phosphatase Troponin I 9.92 H* D Total Protein Albumin Cortisol 60.00 H 05/20/16 05/20/16 05/20/16 06:34 06:34 06:34 WBC 7.5 RBC 2.45 L Hgb 7.6 L D Hct 24.2 L MCV 98 MCH 30.9 MCHC 31.4 L RDW 15.0 H Plt Count 30 L MPV 11.6 H Neut % (Auto) Cancelled Lymph % (Auto) Cancelled [place] % (Auto) Cancelled Eos % (Auto) Cancelled Baso % (Auto) Cancelled Absolute Neuts (auto) Cancelled Absolute Lymphs (auto) Cancelled Seg Neuts % (Manual) 70 Band Neutrophils % 3 Lymphocytes % (Manual) 27 Absolute Neutrophils 5.48 Absolute Lymphocytes 2.03 Nucl RBC Rel Cnt (Man) 15 Toxic Granulation 1+ Platelet Estimate Dec RBC Morphology 2+ behzad PT 16.7 H INR 1.6 APTT 72.0 H Fibrinogen Sodium 136 L Potassium 4.2 Chloride 111 H Carbon Dioxide 11 L Anion Gap 18 H BUN 35 H Creatinine 2.90 H Estimated GFR (MDRD) 16 L Glucose 161 H Calculated Osmolality 273 Lactic Acid Calcium 6.7 L* Corrected Calcium 9.4 Magnesium 1.60 Total Bilirubin 0.4 AST 1493 H ALT 1429 H Alkaline Phosphatase 36 L Troponin I Total Protein 2.6 L Albumin 1.3 L Cortisol 05/20/16 06:34 WBC RBC Hgb Hct MCV MCH MCHC RDW Plt Count MPV Neut % (Auto) Lymph % (Auto) [place] % (Auto) Eos % (Auto) Baso % (Auto) Absolute Neuts (auto) Absolute Lymphs (auto) Seg Neuts % (Manual) Band Neutrophils % Lymphocytes % (Manual) Absolute Neutrophils Absolute Lymphocytes Nucl RBC Rel Cnt (Man) Toxic Granulation Platelet Estimate RBC Morphology PT INR APTT Fibrinogen Sodium Potassium Chloride Carbon Dioxide Anion Gap BUN Creatinine Estimated GFR (MDRD) Glucose Calculated Osmolality Lactic Acid 11.0 H* Calcium Corrected Calcium Magnesium Total Bilirubin AST ALT Alkaline Phosphatase Troponin I Total Protein Albumin Cortisol Previous EKGs: EKG #1: 71 bpm. Normal sinus rhythm. Low voltage QRS. Nonspecific T wave abnormality. Flat T wave in 3, aVF, and V6. Minimal ST depression in 2. Reviewed EKG personally. EKG #2: 105 bpm. Sinus tachycardia. Low voltage QRS. Cannot rule out anterior infarct, age undetermined. Flat T wave in leads 3, aVF, and V6. ST depression in V2, V4. Reviewed EKG personally. Chest x-ray, post intubation, viewed personally: EXAM: PORTABLE CHEST 1 VIEW COMPARISON: 01/25/2016 FINDINGS: Endotracheal tube with tip just below the cords and cuff likely supraglottic. The orogastric tube tip is in the stomach. Stable heart size and aortic contours when allowing for rotation. There is streaky perihilar opacity suggesting atelectasis and possible aspiration. There is interlobular septal thickening bilaterally with Wayne lines. No visible effusion or air leak. These results were called by telephone at the time of interpretation on 05/20/2016 at 6:[address] EMILIA PAYTON MD, who verbally acknowledged these results. IMPRESSION: 1. Malpositioned endotracheal tube with cuff above the glottis. 2. Orogastric tube in good position. 3. Extensive lung opacity, favor combination of perihilar atelectasis/ aspiration and pulmonary edema. Discussed findings with radiologist. Note: Called Dr. Plaza; he re-intubated the patient. - Assessment (1) Pulseless electrical activity Acute I46.9 - CARDIAC ARREST, CAUSE UNSPECIFIED Comment/Plan: Patient had mild tachycardia, developed worsening hypoxia, then after brief bradycardia had pulseless electrical activity and a code blue was called at 0510 on 05/20/16. Nurses immediately started code blue protocols, CPR. Dr. Payton was still in the ICU writing orders for the patient and was at bedside. Respiratory therapists began [id number]. Prior to start of code, IVF NS bolus had been running at 999; IVF boluses continued throughtout the code. Chest compressions continued. Epi given x 3. Bicarb x 1. Magnesium IV that was infusing prior to code was increased in rate. Dr. Plaza from the emergency department intubated patient. Color change was noted on instrumentation and patient was noted to have breath sounds that were equal bilaterally. Respiratory therapist continued [id number]. Rhythm changed to a fib, pulse was palpated at rate of 108-127, and blood pressures were 127/90, 112/54, then 86/62. (2) Acute respiratory failure with hypoxia Acute J96.01 - ACUTE RESPIRATORY FAILURE WITH HYPOXIA (3) Anemia associated with acute blood loss Acute D62 - ACUTE POSTHEMORRHAGIC ANEMIA (4) Upper GI bleeding Acute K92.2 - GASTROINTESTINAL HEMORRHAGE, UNSPECIFIED (5) Hypotension Acute I95.9 - HYPOTENSION, UNSPECIFIED Comment/Plan: SBP in high 80s. Required several IVF boluses overnight. Plan: Transfer to ICU. Continue IVF boluses. If no improvement add pressors. (6) Acute coronary syndrome Acute I24.9 - ACUTE ISCHEMIC HEART DISEASE, UNSPECIFIED Comment/Plan: Possible diagnosis, vs increase due to renal failure and acute illness. No chest pain. Troponin continues to increase. Plan: Lovenox q 12 hours. Cannot receive beta yvette or CHANNING at this time due to renal failure and hypotension. Telemetry. (7) Acute on chronic renal failure Acute N17.9 - ACUTE KIDNEY FAILURE, UNSPECIFIED; N18.9 - CHRONIC KIDNEY DISEASE, UNSPECIFIED Comment/Plan: HISTORY: Baseline creatinine 2.9. Will hydrate gently, recheck renal function in the morning. UPDATE: Cr 3.6 decreased slightly to 3.3. Continue rehydration. Continue home medications. Avoid nephrotoxins. (8) Magnesium deficiency Acute E61.2 - MAGNESIUM DEFICIENCY Comment/Plan: Noted. Plan: Replace with IV magnesium Caution due to renal failure. (9) Nausea and vomiting Acute R11.2 - NAUSEA WITH VOMITING, UNSPECIFIED Comment/Plan: Due to medication effect. Will treat with alternating IV Zofran and IV Phenergan, as well as small doses of IV Ativan. UPDATE: Severe. Has had several episodes of vomiting overnight. Increased Phenergan dose. Continue with zofran, ativan. (10) Multiple myeloma Acute C90.00 - MULTIPLE MYELOMA NOT HAVING ACHIEVED REMISSION Comment/Plan: Currently under the care of Dr. Gruber, her presentation is most likely related to medication effect from her current chemotherapy. 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 Calcium levels are actually relatively stable , and better than they have been in the intervening months. (12) Hyponatremia Acute E87.1 - HYPO-OSMOLALITY AND HYPONATREMIA Comment/Plan: Mild, hypovolemic. rehydrating with normal saline will follow daily. (13) Thrombocytopenia Acute D69.6 - THROMBOCYTOPENIA, UNSPECIFIED - Plan CODE BLUE NOTES: SHU BLUE EPISODE #1: Patient had mild tachycardia, developed worsening hypoxia, then after brief bradycardia had pulseless electrical activity and a shu blue was called at 0510 on 05/20/16. Nurses immediately started code daysi protocols, CPR. Dr. Payton was still in the ICU writing orders for the patient and was at bedside. Respiratory therapists began [id number]. Prior to start of code, IVF NS bolus had been running at 999; IVF boluses continued throughout the code. Chest compressions continued. Epi given x 3. Bicarb x 1. Magnesium IV that was infusing prior to code was increased in rate. Dr. Plaza from the emergency department intubated patient. Color change was noted on instrumentation and patient was noted to have breath sounds that were equal bilaterally. Respiratory therapist continued [id number]. Rhythm changed to a fib, pulse was palpated at rate of 108-127, and blood pressures were 127/90, 112/54, then 86/62. Code blue was stopped due to return of spontaneous circulation. Dr. Payton wrote mechanical ventilation orders. Added IV Levophed gtt for hypotension. Continued IVFs, magnesium, and other efforts. Ordered CXR, labs. Added IV Dopamine for hypotension. CODE BLUE EPISODE #2: At 0548, patient developed pulseless electrical activity again. Code blue restarted. Chest compressions restarted. Gave Epi x 4. Bicarb x 1. Patient switched from mechanical ventilator back to manual [id number]. Respirations rechecked and breath sounds equal bilaterally. Continued IVF bolus of NS, IV Levophed gtt, IV Dopamine. Code blue was stopped due to return of spontaneous circulation. IV gtt, IVFs, continued. CODE BLUE EPISODE #3: Patient developed asystole. Code blue restarted. Chest compressions restarted. Gave Epi. Code blue was stopped due to return of spontaneous circulation. Continued IVFs and IV gtts. Patient had worsening hypotension despite increasing treatment. CODE BLUE EPISODE #4: Patient developed bradycardia to 43. Code blue restarted. Chest compressions restarted. IV Levophed gtt stopped due to concern for bradycardia. Gave Epi. Continued IVF boluses and IV dopamine. Patient briefly regained pulse but then returned to pulseless electrical activity. Re-addressed situation with family. Family agreed to stop the code. Code was stopped at 0651. Additional notes: CXR result returned: ETT too high. Suspect that it may have become malpositioned during CPR efforts. Notified Dr. Plaza, who re-intubated the patient. Patient was found by code blue episode #2 to have some blood in her mouth and in the ETT. Also had dark red blood in canister from NG tube to intermittent suction. As time progressed, patient had further blood in ETT, mouth, and NG tube. She was suctioned. During the final code blue, the staff performing chest compressions noted that it was becoming harder to press down for compressions and that they were meeting more resistance. Respiratory therapist also noting increased resistance. Labs returned showing a rapid drop in hemoglobin/hematocrit.
--- NOTE | 2016-05-20 19:51 | PCM.DEATH ---
Discharge Disposition: - Summary Notes Physical Examination: VS- Absent Gen- Pt unresponsive HEENT- Pupils Fixed and dilated. Lungs- Breath sounds absent. Heart- Heart sounds absent Carotid, Radial, Femoral, and DP pulses: Absent. [facility] [id number] YANCY GARCIA [id number] Admission Date/Time: 05/19/16 07:31 Admission Diagnoses: [] Reason for hospitalization: [] Significant findings:[] Procedures performed and care, treatment and services provided:[] Information provided to the family, as appropriate:[Yes, family informed of patient's transfer to the ICU and updated multiple times during code blue. Family was informed that patient .] Autopsy plans:[None] Date/Time of Patient's Expiration:[05/20/2016 at 0702] Cause of (Primary discharge diagnosis): [] Final Diagnosis:[]
== END 2016-05-20 12:05 | disposition expired | DRG 682 ==
LOC: ED 05:05 → PCU 07:31 → ICU 05-20 04:20
PROVIDERS: ADMIT Internal Medicine; ATTEND Internal Medicine
PROC: 0BH17EZ Insertion of Endotracheal Airway into Trachea, Via Natural or Artificial Opening (ICD-10-PCS; principal; 2016-05-20)
PROC: 5A1935Z Respiratory Ventilation, Less than 24 Consecutive Hours (ICD-10-PCS; 2016-05-20)
PROC: 5A12012 Performance of Cardiac Output, Single, Manual (ICD-10-PCS; 2016-05-20)
PROC: 3E033XZ Introduction of Vasopressor into Peripheral Vein, Percutaneous Approach (ICD-10-PCS; 2016-05-20)
PROC: 0D9670Z Drainage of Stomach with Drainage Device, Via Natural or Artificial Opening (ICD-10-PCS; 2016-05-20)
DX: N17.9 Acute kidney failure, unspecified (principal); J96.01 Acute respiratory failure with hypoxia; C90.00 Multiple myeloma not having achieved remission; E87.1 Hypo-osmolality and hyponatremia; D62 Acute posthemorrhagic anemia; K92.2 Gastrointestinal hemorrhage, unspecified; R11.2 Nausea with vomiting, unspecified; T45.1X5A Adverse effect of antineoplastic and immunosuppressive drugs, initial encounter; E61.2 Magnesium deficiency; E86.0 Dehydration; E83.52 Hypercalcemia; I12.9 Hypertensive chronic kidney disease with stage 1 through stage 4 chronic kidney disease, or unspecified chronic kidney disease; N18.9 Chronic kidney disease, unspecified; M19.049 Primary osteoarthritis, unspecified hand; D64.9 Anemia, unspecified; E03.9 Hypothyroidism, unspecified; I46.9 Cardiac arrest, cause unspecified; Z88.6 Allergy status to analgesic agent; Z79.82 Long term (current) use of aspirin; I25.2 Old myocardial infarction; Z80.9 Family history of malignant neoplasm, unspecified; Y92.9 Unspecified place or not applicable
CPT/HCPCS: 31500; 36556; 51798; 71010; 80053; 82533; 83605; 83735; 84484; 85007; 85025; 85027; 85049; 85384; 85610; 85730; 87641; 92950; 93005; 94002; 96361; 96372; 96374; 96376; 99284; 99291; 99292; J0171; J0330; J0461; J1265; J1650; J2001; J2060; J2250; J2270; J2405; J2550; J3475; J3490; J7060; S0164